=== PATIENT | male | born 1985 | race Caucasian/White ===

== ENCOUNTER 2016-10-03 11:04 | Outpatient (CLI) | payer OTHER ==
--- NOTE | 2016-10-03 12:16 | DIAGNOSTIC IMAGING REPORT ---
PROCEDURE: XR KNEE 1 OR 2 VIEWS - RIGHT INDICATION: RHEUMATOID ARTHRITIS,SPONDYLITIS,SCOLIOSIS,BLEEDING ULCERS TECHNIQUE: Two views. COMPARISON: None. FINDINGS: Osseous structures and joint spaces are normal. IMPRESSION: 1. Normal right knee.
--- NOTE | 2016-10-03 12:18 | DIAGNOSTIC IMAGING REPORT ---
PROCEDURE: XR KNEE 1 OR 2 VIEWS - LEFT INDICATION: RHEUMATOID ARTHRITIS,SPONDYLITIS,SCOLIOSIS,BLEEDING ULCERS TECHNIQUE: Four views. COMPARISON: None. FINDINGS: Osseous structures and joint spaces are normal. IMPRESSION: 1. Normal left knee.
== END 2016-10-03 23:00 ==
LOC: XR SRH 11:04
DX: M06.9 Rheumatoid arthritis, unspecified (principal); M46.90 Unspecified inflammatory spondylopathy, site unspecified; M41.9 Scoliosis, unspecified